=== PATIENT | female | born 1950 | race African-American/Black ===

== ENCOUNTER 2018-02-23 17:49 | Inpatient (IN) | payer MEDICARE ==
[~2018-02-23] VITALS: Ht 167.6 cm; Wt 59.4 kg
[2018-02-23] MEDS ORDERED: ASPIRIN 325MG TABLET PO ONE (19:15)
[2018-02-23] MEDS ORDERED: NITROGLYCERIN OINT 1GM/INCH UDPKT TD ONE (19:15)
[2018-02-23] MEDS ORDERED: FUROSEMIDE 40MG/4ML VIAL IVP ONE (19:15)
[2018-02-23 19:43] LABS: BASOPHILS % 0.6 % (0.0-2.0); EOSINOPHILS % 4.1 % (0.0-5.0); HEMATOCRIT. 41.6 % (36.0-48.0); HEMOGLOBIN. 13.6 g/dL (12.0-16.0); LYMPHOCYTES % 26.5 % (20.0-50.0); MEAN CORPUSCULAR HEMOGLOBIN 27.7 pg (28.0-32.0); MEAN CORPUSCULAR VOLUME 84.8 fL (81.0-99.0); MEAN PLATELET VOLUME 8.2 fl (7.4-10.4); MONOCYTES % 8.8 % (2.0-8.0); PLATELET 228 x1000/uL (130-400); RED BLOOD CELL COUNT 4.91 mill/uL (4.2-5.4); RED CELL DISTRIBUTION WIDTH 13.8 % (11.6-14.6)
[2018-02-23 19:46] LABS: CHLORIDE 105 mEq/L (98-107)
[2018-02-23] MEDS ORDERED: CLONIDINE 0.2MG TABLET PO ONE (20:30)
[2018-02-23] MEDS ORDERED: LORAZEPAM 0.5MG TABLET PO PRN (21:15)
[2018-02-23] MEDS ORDERED: NITROGLYCERIN 0.4MG TABLET SL SL PRN (21:15)
[2018-02-23] MEDS ORDERED: ZOLPIDEM TARTRATE 5MG TABLET PO PRN (21:15)
[2018-02-23] MEDS ORDERED: ACETAMINOPHEN 325MG TABLET PO PRN (21:15)
[2018-02-23] MEDS ORDERED: ONDANSETRON HCL 4MG/2ML INJ IV PRN (21:15)
[2018-02-23] MEDS ORDERED: DOCUSATE SODIUM 100MG CAPSULE PO PRN (21:15)
[2018-02-23] MEDS ORDERED: IPRATROPIUM/ALBUTEROL 0.5-3(2.5)MG/3ML NEB INH PRN (21:15)
[2018-02-23] MEDS ORDERED: MAGNESIUM/ALUMINUM HYDROXIDE/SIMETHICONE 30ML UDC PO PRN (21:15)
[2018-02-23] MEDS ORDERED: GUAIFENESIN 200MG/10ML SUGAR FREE UDC PO PRN (21:15)
[2018-02-23] MEDS ORDERED: DIPHENHYDRAMINE 50MG/ML VIAL IV PRN (21:15)
[2018-02-23] MEDS ORDERED: IOHEXOL-350 100 ML BOTTLE ONE (22:02)
[2018-02-23 22:08] LABS: *AMPHETAMINES SCREEN URINE NEGATIVE (NEGATIVE); *BARBITURATES SCREEN URINE NEGATIVE (NEGATIVE); *BENZODIAZEPINES SCREEN URINE NEGATIVE (NEGATIVE); *COCAINE SCREEN URINE NEGATIVE (NEGATIVE)
[2018-02-23 22:09] LABS: CANNABINOID URINE SCREEN NEGATIVE (NEGATIVE); METHADONE URINE SCREEN NEGATIVE (NEGATIVE); OPIATES URINE SCREEN NEGATIVE (NEGATIVE); PHENCYCLIDINE URINE SCREEN NEGATIVE (NEGATIVE)
[2018-02-23] MEDS ORDERED: NA PHOS,M-B/NA PHOS,DI-BA ENEMA 118ML PR PRN (23:30)
[2018-02-23 23:43] VITALS: BP 167/100
[2018-02-23] MEDS ORDERED: KETOROLAC 15MG/ML VIAL IV PRN (23:44)
[2018-02-23] MEDS ORDERED: TRAMADOL 50MG TABLET PO PRN (23:45)
[2018-02-23] MEDS ORDERED: CLONIDINE 0.2MG TABLET PO PRN (23:45)
[2018-02-24 00:41] LABS: CREATINE KINASE 82 IU/L (26-192)
[2018-02-24 00:42] LABS: CREATINE KINASE MB FRACTION 1.4 ng/mL (0.5-3.6)
[2018-02-24] MEDS: HYDRALAZINE HCL 50MG TABLET PO SCH ×3 (05:16→22:21)
[2018-02-24] MEDS: IPRATROPIUM/ALBUTEROL 0.5-3(2.5)MG/3ML NEB HHN SCH ×4 (05:24→21:02)
[2018-02-24 06:00] VITALS: BP 111/68
[2018-02-24] MEDS ORDERED: PNEUMOCOCCAL 23-VAL P-SAC VAC 0.5 ML IM ONE (08:00)
[2018-02-24 08:08] VITALS: BP 115/64
[2018-02-24] MEDS: FUROSEMIDE 40MG/4ML VIAL IVP SCH ×2 (08:35→22:21)
[2018-02-24] MEDS: GUAIFENESIN/DM 600MG/30MG ER TAB 12HR PO SCH ×2 (08:37→22:20)
[2018-02-24] MEDS: ENOXAPARIN 40MG/0.4ML SYR SUBCUT SCH (08:37)
[2018-02-24] MEDS: AMLODIPINE 10MG TABLET PO SCH ×2 (08:37→09:00)
[2018-02-24] MEDS: METOPROLOL TARTRATE 25MG TABLET PO SCH ×2 (08:38→22:21)
[2018-02-24] MEDS: SPIRONOLACTONE 25MG TABLET PO SCH ×2 (08:38→22:20)
[2018-02-24] MEDS: LISINOPRIL 20MG TABLET PO SCH ×2 (08:38→22:20)
[2018-02-24] MEDS: ASCORBIC ACID 500 MG TABLET PO SCH ×2 (08:38→22:19)
[2018-02-24] MEDS: FAMOTIDINE 20MG TABLET PO SCH (08:38)
[2018-02-24] MEDS: ASPIRIN 325MG EC TABLET PO SCH (08:39)
[2018-02-24] MEDS ORDERED: INFLUENZA VIRUS VACCINE(AFLURIA) 0.5ML SYR IM ONE (10:00)
[2018-02-24 11:53] VITALS: BP 117/59
[2018-02-24 12:00] VITALS: BP 117/59
[2018-02-24 12:01] LABS: CREATINE KINASE 68 IU/L (26-192)
[2018-02-24 12:02] LABS: CREATINE KINASE MB FRACTION 1.2 ng/mL (0.5-3.6)
[2018-02-24 15:50] VITALS: BP 110/59
[2018-02-24 16:24] LABS: BASOPHILS % 0.7 % (0.0-2.0); EOSINOPHILS % 4.7 % (0.0-5.0); HEMATOCRIT. 35.5 % (36.0-48.0); HEMOGLOBIN. 11.7 g/dL (12.0-16.0); LYMPHOCYTES % 24.5 % (20.0-50.0); MEAN CORPUSCULAR HEMOGLOBIN 27.7 pg (28.0-32.0); MEAN CORPUSCULAR VOLUME 84.1 fL (81.0-99.0); MEAN PLATELET VOLUME 8.3 fl (7.4-10.4); MONOCYTES % 7.5 % (2.0-8.0); NEUTROPHILS % 62.6 % (40.0-76.0); PLATELET 197 x1000/uL (130-400); RED BLOOD CELL COUNT 4.22 mill/uL (4.2-5.4); RED CELL DISTRIBUTION WIDTH 13.8 % (11.6-14.6)
[2018-02-24 16:41] LABS: CHLORIDE 103 mEq/L (98-107)
[2018-02-24 20:00] VITALS: BP 129/63
[2018-02-25] VITALS (7 sets, daily range): BP systolic 130–149; BP diastolic 67–91
[2018-02-25] MEDS: IPRATROPIUM/ALBUTEROL 0.5-3(2.5)MG/3ML NEB HHN SCH ×5 (00:33→20:11)
[2018-02-25] MEDS: HYDRALAZINE HCL 50MG TABLET PO SCH ×3 (05:24→20:26)
[2018-02-25] MEDS: SPIRONOLACTONE 25MG TABLET PO SCH ×2 (08:23→20:26)
[2018-02-25] MEDS: FUROSEMIDE 40MG/4ML VIAL IVP SCH ×2 (08:23→20:26)
[2018-02-25] MEDS: ENOXAPARIN 40MG/0.4ML SYR SUBCUT SCH (08:23)
[2018-02-25] MEDS: AMLODIPINE 10MG TABLET PO SCH (08:24)
[2018-02-25] MEDS: ASCORBIC ACID 500 MG TABLET PO SCH ×2 (08:24→20:26)
[2018-02-25] MEDS: METOPROLOL TARTRATE 25MG TABLET PO SCH ×2 (08:24→20:26)
[2018-02-25] MEDS: FAMOTIDINE 20MG TABLET PO SCH (08:24)
[2018-02-25] MEDS: ASPIRIN 325MG EC TABLET PO SCH (08:24)
[2018-02-25] MEDS: GUAIFENESIN/DM 600MG/30MG ER TAB 12HR PO SCH ×2 (08:24→20:26)
[2018-02-25] MEDS: LISINOPRIL 20MG TABLET PO SCH ×2 (08:25→20:26)
[2018-02-26] MEDS: IPRATROPIUM/ALBUTEROL 0.5-3(2.5)MG/3ML NEB HHN SCH ×5 (00:10→15:08)
[2018-02-26 04:00] VITALS: BP 166/80
[2018-02-26] MEDS: HYDRALAZINE HCL 50MG TABLET PO SCH (04:41)
[2018-02-26] MEDS: LISINOPRIL 20MG TABLET PO SCH (09:00)
[2018-02-26] MEDS: AMLODIPINE 10MG TABLET PO SCH (09:00)
[2018-02-26] MEDS: ASCORBIC ACID 500 MG TABLET PO SCH (10:32)
[2018-02-26] MEDS: FUROSEMIDE 40MG/4ML VIAL IVP SCH (10:32)
[2018-02-26] MEDS: SPIRONOLACTONE 25MG TABLET PO SCH (10:32)
[2018-02-26] MEDS: METOPROLOL TARTRATE 25MG TABLET PO SCH (10:33)
[2018-02-26] MEDS: ASPIRIN 325MG EC TABLET PO SCH (10:33)
[2018-02-26] MEDS: ENOXAPARIN 40MG/0.4ML SYR SUBCUT SCH (10:37)
[2018-02-26] MEDS: GUAIFENESIN/DM 600MG/30MG ER TAB 12HR PO SCH (10:45)
[2018-02-26] MEDS: FAMOTIDINE 20MG TABLET PO SCH (10:45)
[2018-02-26 12:00] VITALS: BP 163/88
[2018-02-26 15:11] VITALS: BP 163/88
[2018-02-26] MEDS ORDERED: ATORVASTATIN CALCIUM 20MG TABLET PO SCH (21:00)
== END 2018-02-26 16:08 | disposition home or self-care (01) | DRG 682 ==
LOC: ER 17:49 → 7WST 20:32 → EDBEDREQ 20:36 → ENRESERV 22:09
PROVIDERS: ADMIT Internal Medicine; ATTEND Internal Medicine
DX: N17.0 Acute kidney failure with tubular necrosis (principal); J96.00 Acute respiratory failure, unspecified whether with hypoxia or hypercapnia; I50.33 Acute on chronic diastolic (congestive) heart failure; I11.0 Hypertensive heart disease with heart failure; J44.9 Chronic obstructive pulmonary disease, unspecified; K30 Functional dyspepsia; K59.00 Constipation, unspecified; F41.9 Anxiety disorder, unspecified; G47.00 Insomnia, unspecified; Z91.11 Patient's noncompliance with dietary regimen; Z91.14 Patient's other noncompliance with medication regimen; Z23 Encounter for immunization
CPT/HCPCS: 36415; 71045; 71275; 80061; 80305; 82550; 82553; 83036; 83605; 83880; 84484; 87804; 90686; 90732; 93005; 93306; 93970; 94640; 96374; 97162; 97166; 99285; J1650; J1940; J7620; Q9967

== ENCOUNTER 2018-03-25 13:48 | Emergency (ER) | payer MEDICARE ==
[~2018-03-25] VITALS: Ht 165.1 cm; Wt 63.0 kg
[2018-03-25 16:50] VITALS: BP 122/77
== END 2018-03-25 17:00 | disposition home or self-care (01) ==
LOC: ER 13:48
DX: I10 Essential (primary) hypertension (principal)
CPT/HCPCS: 99283

== ENCOUNTER 2019-04-03 16:33 | Emergency (ER) | payer MEDICARE ==
[~2019-04-03] VITALS: Ht 160 cm; Wt 60.0 kg
[2019-04-03] MEDS ORDERED: IBUPROFEN 600MG TABLET PO ONE (20:15)
[2019-04-03] MEDS ORDERED: BACITRACIN ZINC OINT UDPKT TOP ONE (20:15)
[2019-04-03 21:00] VITALS: BP 154/79
== END 2019-04-03 21:55 | disposition home or self-care (01) ==
LOC: ER 16:33
DX: S50.02XA Contusion of left elbow, initial encounter (principal); W01.0XXA Fall on same level from slipping, tripping and stumbling without subsequent striking against object, initial encounter; Y93.89 Activity, other specified; Y92.89 Other specified places as the place of occurrence of the external cause; Y99.8 Other external cause status
CPT/HCPCS: 29105; 73080; 99283; A4565